=== PATIENT | male | born 1990 | race Caucasian/White ===

== ENCOUNTER 2017-02-10 21:46 | Emergency (ER) | payer OTHER ==
[~2017-02-10] VITALS: Ht 172.7 cm; Wt 110.0 kg
[~2017-02-10 21:46] MED LIST: DEPA500T3 PO; DIVA500T3 PO; SERO100T PO; TRAZ150T75 PO; ZIPR1CAP27 PO
[2017-02-10 21:55] VITALS: BP 140/79; PULSE 84; RESP 18; TEMP 98; O2SAT 98
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
[2017-02-10] MEDS ORDERED: LIDOCAINE HCL 1% 30 ML VIAL INFIL ONE (22:00)
[2017-02-10] MEDS ORDERED: ceFAZolin 2 GM PREMIX 50 ML ONE (22:02)
[2017-02-10] MEDS ORDERED: LIDOCAINE 1%/EPINEPHrine 1:100,000 SOLN 50 ML VIAL ONE (22:03)
[2017-02-10] MEDS ORDERED: LIDOCAINE HCL 1% PF 30 ML VIAL ONE (22:04)
[2017-02-10] MEDS ORDERED: ceFAZolin 2 GM PREMIX 50 ML IV ONE (22:15)
== END 2017-02-11 00:17 | disposition home or self-care (01) ==
LOC: NEPE 21:46
DX: S51.812A Laceration without foreign body of left forearm, initial encounter (principal); Z72.0 Tobacco use; Z23 Encounter for immunization; Z86.79 Personal history of other diseases of the circulatory system; Z86.59 Personal history of other mental and behavioral disorders; W27.8XXA Contact with other nonpowered hand tool, initial encounter
CPT/HCPCS: 12032; 90471; 90715; 96365; 96366; 96374; 99284; 99285; J0690; J1170

== ENCOUNTER 2017-07-01 10:43 | Emergency (ER) | payer OTHER ==
[~2017-07-01 10:43] MED LIST changes: -DEPA500T3 PO; -TRAZ150T75 PO; -ZIPR1CAP27 PO
[2017-07-01 10:44] VITALS: BP 146/86; PULSE 92; RESP 15; TEMP 98.4; O2SAT 98
[2017-07-01 12:08] LABS: AUTOMATED NEUTROPHIL # 2.1 TH/MM3 (1.8-7.7); BASOPHIL % 0.3 % (0.0-2.0); EOSINOPHIL # 0.1 TH/MM3 (0-0.4); EOSINOPHIL % 0.9 % (0.0-4.0); HEMATOCRIT 43.1 % (39.0-51.0); LYMPH % 59.8 % (9.0-44.0); LYMPHOCYTE # 4.4 TH/MM3 (1.0-4.8); MEAN CELL VOLUME 84.6 FL (80.0-100.0); MEAN CORPUSCULAR HGB CONC 34.3 % (32.0-36.0); MONO % 10.5 % (0.0-8.0); NEUT % 28.5 % (16.0-70.0); PLATELET COUNT 181 TH/MM3 (150-450); RED BLOOD COUNT 5.09 MIL/MM3 (4.50-5.90); RED CELL DISTRIBUTION WIDTH 13.2 % (11.6-17.2); WHITE BLOOD COUNT 7.3 TH/MM3 (4.0-11.0)
[2017-07-01 12:10] LABS: HEMO FLAGS AUTO DIFF
[2017-07-01 12:14] LABS: BLOOD, URINE NEG (NEG); COMMENT (UR) CULT NOT INDICATED; CULTURE IF INDICATED CULT NOT INDICATED; GLUCOSE,URINE NEG (NEG); KETONE, URINE NEG (NEG); MUCUS URINE FEW /lpf (OCC); NITRITE,URINE NEG (NEG); PH, URINE 5.5 (5.0-8.5); URINE COLOR YELLOW (YELLW/STRAW)
[2017-07-01 12:21] LABS: ANION GAP 10 MEQ/L (5-15); AST (GOT) 25 U/L (15-37); BLOOD UREA NITROGEN 11 MG/DL (7-18); CHLORIDE 107 MEQ/L (98-107); GLOMERULAR FILTRATION RATE 103 ML/MIN (>89); POTASSIUM 4.2 MEQ/L (3.5-5.1); SODIUM (NA) 138 MEQ/L (136-145)
[2017-07-01 12:23] LABS: ALT (GPT) 60 U/L (12-78)
[2017-07-01 12:24] LABS: ALKALINE PHOSPHATASE 104 U/L (45-117); TOTAL BILIRUBIN ADULT 0.5 MG/DL (0.2-1.0)
[2017-07-01 12:41] LABS: SCAN/DIFF AUTO DIFF CONFIRMED
--- NOTE | 2017-07-01 13:32 | PD ---
HPI Chief Complaint: GI Complaint Time Seen by Provider: 13:10 Travel History International Travel<30 days: No Contact w/Intl Traveler<30days: No Traveled to known affect area: No History of Present Illness HPI This patient reports that he has had nausea and vomiting and diarrhea for one month. He says he vomits about twice a day. He hasn't seen his family physician for this. He's been told by multiple people he is a GI evaluation. He is not having fever or abdominal pain. Severity is mild to moderate. No alleviating factors. Denies alcohol abuse or drug abuse other than rare marijuana use. No exacerbating factors PFSH Past Medical History Blood Disorders: No Anxiety: Yes Depression: No Heart Rhythm Problems: No Cancer: No Cardiovascular Problems: Yes (cardiac arrythmia) High Cholesterol: No Endocrine: No Gastrointestinal Disorders: No Genitourinary: No Implanted Vascular Access Dvce: No Musculoskeletal: No Neurologic: Yes (bi polar connie) Psychiatric: Yes Respiratory: No Immunizations Current: Yes Past Surgical History Other Surgery: No Social History Alcohol Use: Yes (OCC) Tobacco Use: Yes (ONCE EVERY FEW DAYS) Substance Use: Yes (marijuana) Allergies-Medications (Allergen,Severity, Reaction): Coded Allergies: diphenhydramine (Unverified Allergy, Unknown, ITCHY, 05/01/17) trazodone (Unverified Allergy, Unknown, 05/01/17) Reported Meds & Prescriptions Reported Meds & Active Scripts Active Reported Seroquel (Quetiapine Fumarate) 100 Mg Tab 100 Mg PO DAILY Divalproex ER (Divalproex Sodium) 500 Mg Tab 500 Mg PO DAILY Review of Systems General / Constitutional: No: Fever Eyes: No: Visual changes HENT: No: Headaches Cardiovascular: No: Chest Pain or Discomfort Respiratory: No: Shortness of Breath Gastrointestinal: Positive: Nausea, Vomiting, Diarrhea, No: Abdominal Pain Genitourinary: No: Dysuria Musculoskeletal: No: Pain Skin: No Rash Neurologic: No: Weakness Psychiatric: No: Depression Endocrine: No: Polydipsia Hematologic/Lymphatic: No: Easy Bruising Physical Exam Narrative GENERAL: Well-nourished, well-developed patient in no apparent distress. SKIN: Focused skin assessment reveals no rash and nodules. Skin is Warm and dry. HEAD: Atraumatic. Normocephalic. EYES: Pupils equal and round. No scleral icterus. No injection or drainage. ENT: No nasal bleeding or discharge. Mucous membranes pink and moist. NECK: Trachea midline. No JVD. CARDIOVASCULAR: Regular rate and rhythm. No murmur appreciated. RESPIRATORY: No accessory muscle use. Clear to auscultation. Breath sounds equal bilaterally. GASTROINTESTINAL: Abdomen soft, non-tender, nondistended. Hepatic and splenic margins not palpable. MUSCULOSKELETAL: No obvious deformities. No clubbing. No cyanosis. No edema. NEUROLOGICAL: Awake and alert. No obvious cranial nerve deficits. Motor grossly within normal limits. Normal speech. PSYCHIATRIC: Appropriate mood and affect; insight and judgment normal. Data Data Last Documented VS Vital Signs Date Time Temp Pulse Resp B/P (MAP) Pulse Ox O2 Delivery O2 Flow Rate FiO2 07/01/17 10:44 98.4 92 15 146/86 (106) 98 Orders Orders Complete Blood Count With Diff (07/01/17 11:14) Comprehensive Metabolic Panel (07/01/17 11:14) Urinalysis - C+S If Indicated (07/01/17 11:14) Lipase (07/01/17 11:14) Labs Laboratory Tests Test 07/01/17 11:41 07/01/17 11:43 White Blood Count 7.3 TH/MM3 Red Blood Count 5.09 MIL/MM3 Hemoglobin 14.8 GM/DL Hematocrit 43.1 % Mean Corpuscular Volume 84.6 FL Mean Corpuscular Hemoglobin 29.0 PG Mean Corpuscular Hemoglobin Concent 34.3 % Red Cell Distribution Width 13.2 % Platelet Count 181 TH/MM3 Mean Platelet Volume 8.5 FL Neutrophils (%) (Auto) 28.5 % Lymphocytes (%) (Auto) 59.8 % Monocytes (%) (Auto) 10.5 % Eosinophils (%) (Auto) 0.9 % Basophils (%) (Auto) 0.3 % Neutrophils # (Auto) 2.1 TH/MM3 Lymphocytes # (Auto) 4.4 TH/MM3 Monocytes # (Auto) 0.8 TH/MM3 Eosinophils # (Auto) 0.1 TH/MM3 Basophils # (Auto) 0.0 TH/MM3 CBC Comment AUTO DIFF Differential Comment AUTO DIFF CONFIRMED Blood Urea Nitrogen 11 MG/DL Creatinine 0.89 MG/DL Random Glucose 94 MG/DL Total Protein 7.8 GM/DL Albumin 4.0 GM/DL Calcium Level 9.1 MG/DL Alkaline Phosphatase 104 U/L Aspartate Amino Transf (AST/SGOT) 25 U/L Alanine Aminotransferase (ALT/SGPT) 60 U/L Total Bilirubin 0.5 MG/DL Sodium Level 138 MEQ/L Potassium Level 4.2 MEQ/L Chloride Level 107 MEQ/L Carbon Dioxide Level 21.0 MEQ/L Anion Gap 10 MEQ/L Estimat Glomerular Filtration Rate 103 ML/MIN Lipase 71 U/L Urine Color YELLOW Urine Turbidity CLEAR Urine pH 5.5 Urine Specific [place] 1.020 Urine Protein NEG mg/dL Urine Glucose (UA) NEG mg/dL Urine Ketones NEG mg/dL Urine Occult Blood NEG Urine Nitrite NEG Urine Bilirubin NEG Urine Urobilinogen LESS THAN 2.0 MG/DL Urine Leukocyte Esterase NEG Urine WBC LESS THAN 1 /hpf Urine Mucus FEW /lpf Microscopic Urinalysis Comment CULT NOT INDICATED MDM Medical Decision Making Medical Screen Exam Complete: Yes Emergency Medical Condition: Yes Medical Record Reviewed: Yes Differential Diagnosis Inflammatory bowel disease, irritable bowel syndrome, colitis Narrative Course I have reviewed the patient's electronic medical record. CBC is normal Metabolic profile is normal LFTs are normal Patient's vital signs exam and lab studies are all normal. Symptoms are chronic in nature. I'm recommending outpatient GI follow-up. He says he is a [facility] patient so he should arrange GI follow up with them Diagnosis Primary Impression: Vomiting and diarrhea Additional Instructions: The patient was advised to follow up with GI physician and return if they worsen. Med/Other Pt SpecificInfo: Other Disposition: 01 DISCHARGE HOME Condition: Stable Glenn Herman MD Jul 01, 2017 13:32
== END 2017-07-01 14:23 | disposition home or self-care (01) ==
LOC: NEPD 10:43
DX: R11.2 Nausea with vomiting, unspecified (principal); R19.7 Diarrhea, unspecified
CPT/HCPCS: 80053; 81001; 83690; 85025; 99283

== ENCOUNTER 2017-08-05 20:05 | Emergency (ER) | payer OTHER ==
[~2017-08-05] VITALS: Ht 172.7 cm; Wt 110.0 kg
[2017-08-05 20:06] VITALS: BP 137/79; PULSE 97; RESP 16; TEMP 98.3; O2SAT 95
[2017-08-05 20:21] VITALS: BP 119/74; PULSE 86; RESP 20; TEMP 98.3; O2SAT 96
[2017-08-05 20:25] VITALS: O2SAT 96
[2017-08-05] MEDS: RESP: ALBUTEROL 2.5 MG/IPRATROPIUM 0.5 MG NEB (SCH) INH (20:26)
[2017-08-05] MEDS ORDERED: DEXAMETHASONE SOD PHOS 4 MG/ML VIAL IM ONE (20:30)
--- NOTE | 2017-08-05 20:45 | PD ---
HPI Chief Complaint: Cold / Flu Symptoms Time Seen by Provider: 20:15 Travel History International Travel<30 days: No Contact w/Intl Traveler<30days: No Traveled to known affect area: No History of Present Illness HPI 27-year-old male presents to the emergency department for evaluation of cold symptoms for 3 days. Patient reports intermittent wheezing, chest tightness, cough. He states he has had chills, but no documented fevers. No abdominal pain. He does state he has coughs so hard he has vomited 3. He denies any other complaints at this time. Severity is [id number]. No exacerbating or alleviating factors. PFSH Past Medical History Blood Disorders: No Anxiety: Yes Depression: No Heart Rhythm Problems: No Cancer: No Cardiovascular Problems: Yes (cardiac arrythmia) High Cholesterol: No Diminished Hearing: No Endocrine: No Gastrointestinal Disorders: No Genitourinary: No Implanted Vascular Access Dvce: No Musculoskeletal: No Neurologic: Yes (bi polar connie) Psychiatric: Yes Respiratory: No Immunizations Current: Yes Past Surgical History Other Surgery: No Social History Alcohol Use: Yes (OCC) Tobacco Use: Yes (ONCE EVERY FEW DAYS) Substance Use: Yes (marijuana) Allergies-Medications (Allergen,Severity, Reaction): Coded Allergies: diphenhydramine (Unverified Allergy, Unknown, ITCHY, 08/05/17) trazodone (Unverified Allergy, Unknown, 08/05/17) Reported Meds & Prescriptions Reported Meds & Active Scripts Active Review of Systems Except as stated in HPI: all other systems reviewed are Neg Physical Exam Narrative GENERAL: Well-nourished, well-developed male patient, ambulatory. Afebrile. SKIN: Focused skin assessment warm/dry. HEAD: Normocephalic. Atraumatic. ENT: Mucosa pink and moist. No erythema or exudates. No uvular edema. No uvular , palatal, or tonsillar deviation. Airway patent. Nasal turbinates appear normal without nasal blood, purulent drainage or septal hematoma. Bilateral tympanic membranes are clear without erythema or perforation. EYES: No scleral icterus. No injection or drainage. NECK: Supple, trachea midline. No JVD or lymphadenopathy. CARDIOVASCULAR: Regular rate and rhythm without murmurs, gallops, or rubs. RESPIRATORY: Breath sounds equal bilaterally. No accessory muscle use. Lungs sounds with expiratory wheezes noted throughout. GASTROINTESTINAL: Abdomen soft, non-tender, nondistended. MUSCULOSKELETAL: No cyanosis, or edema. BACK: Nontender without obvious deformity. No CVA tenderness. Data Data Last Documented VS Vital Signs Date Time Temp Pulse Resp B/P (MAP) Pulse Ox O2 Delivery O2 Flow Rate FiO2 08/05/17 20:25 96 21 08/05/17 20:21 98.3 86 20 119/74 (89) Room Air Orders Orders Chest, Single Ap (08/05/17 20:20) Albuterol-Ipratropium Neb (Duoneb Neb) (08/05/17 20:30) Dexamethasone Inj (Decadron Inj) (08/05/17 20:30) MDM Medical Decision Making Medical Screen Exam Complete: Yes Emergency Medical Condition: Yes Medical Record Reviewed: Yes Interpretation(s) Last Impressions Chest X-Ray 08/05/172019 Signed Impressions: Service Date/Time: Saturday, August 05, 2017 20:27 - CONCLUSION: No acute cardiopulmonary disease identified. Enrique Garcia MD Differential Diagnosis URI versus bronchitis versus pneumonia Narrative Course 27-year-old male presents to the emergency department for evaluation of cold symptoms. He does have some expiratory wheezes on exam. Patient is given dexamethasone 8 mg IM. Chest x-ray is ordered and pending. He is given DuoNeb 2. Chest x-ray shows no acute cardiopulmonary disease. Patient will be discharged prescription for prednisone, benzonatate capsules, albuterol inhaler. He is encouraged to follow-up with his primary care physician. The patient was discharged in stable condition with instructions, including return instructions and follow up instructions. Diagnosis Primary Impression: Upper respiratory infection Qualified Codes: J06.9 - Acute upper respiratory infection, unspecified Referrals: Primary Care Physician call for appointment Patient Instructions: General Instructions, Upper Respiratory Infection (ED) Departure Forms: Tests/Procedures, Work Release Enter return to work date: Aug 07, 2017 Additional Instructions: Use albuterol inhaler as directed as needed for shortness breath/wheezing. Take prednisone as directed. Start this tomorrow. Take benzonatate capsules as directed as needed for cough. Follow-up with your primary care physician. Return to the emergency department for any acute worsening of symptoms. Med/Other Pt SpecificInfo: Prescription(s) given Scripts Benzonatate (Benzonatate) 200 Mg Cap 200 MG PO TID Y for COUGH, #21 CAP 0 Refills Prov: Suzanna Gamez 08/05/17 Prednisone (Prednisone) 20 Mg Tab 40 MG PO DAILY for 5 Days, #10 TAB 0 Refills Take 40 mg (2 tablets) daily for 5 days Prov: Suzanna Gamez 08/05/17 Albuterol 18 GM Inh (Ventolin Hfa 18 GM Inh) 90 Mcg/Act Aer 1 PUFF INH Q4H Y for SHORTNESS OF BREATH, #1 INHALER 0 Refills Prov: Suzanna Gamez 08/05/17 Disposition: 01 DISCHARGE HOME Condition: Stable Suzanna Gamez Aug 05, 2017 20:45
--- NOTE | 2017-08-05 20:53 | RADRPT ---
EXAM DATE/TIME: 08/05/2017 20:27 [facility] COMPARISON: CHEST SINGLE AP, December 11, 2014, 22:04. INDICATIONS : Shortness of breath, cough, and bilateral chest pain. MEDICAL HISTORY : Stroke. SURGICAL HISTORY : None. ENCOUNTER: Initial ACUITY: 2 days PAIN SCORE: 5/10 LOCATION: Bilateral chest FINDINGS: Single AP view of the chest. The lungs are clear. Cardiomediastinal silhouette within normal limits. No evidence of pleural effusion or pneumothorax. CONCLUSION: No acute cardiopulmonary disease identified. Enrique Garcia MD on August 05, 2017 at 20:51 Board Certified Radiologist. This report was verified electronically.
[2017-08-05] MEDS ORDERED: PRED20 PO (21:02)
[2017-08-05] MEDS ORDERED: BENZ1CAP51 PO (21:02)
[2017-08-05] MEDS ORDERED: VENTAER INH (21:02)
== END 2017-08-05 21:29 | disposition home or self-care (01) ==
LOC: NEPD 20:05
DX: J06.9 Acute upper respiratory infection, unspecified (principal); F41.9 Anxiety disorder, unspecified; F31.9 Bipolar disorder, unspecified; Z72.0 Tobacco use
CPT/HCPCS: 71010; 94640; 94664; 96372; 99284; J1100

== ENCOUNTER 2017-08-07 22:01 | Emergency (ER) | payer OTHER ==
[~2017-08-07] VITALS: Ht 172.7 cm; Wt 110.0 kg
[~2017-08-07 22:01] MED LIST changes: +BENZ1CAP51 PO; -DIVA500T3 PO; +PRED20 PO; -SERO100T PO; +VENTAER INH
[2017-08-07 22:03] VITALS: BP 142/85; PULSE 88; RESP 18; TEMP 98.4; O2SAT 100
[2017-08-07] MEDS ORDERED: SODIUM CHLORIDE 0.9% FLUSH 10 ML FLUSH IV FLUSH PRN (22:45)
--- NOTE | 2017-08-07 22:45 | PD ---
HPI Chief Complaint: Abdominal Pain Time Seen by Provider: 22:41 Travel History International Travel<30 days: No Contact w/Intl Traveler<30days: No Traveled to known affect area: No History of Present Illness HPI seen earlier this week and treated for wheezing and cough, about 5 days ago, treatment was improving but then patient decided to work out and now has n/v/ and body aches as well as epig pain. burning sensation, 6/10, worse right before meals and sometimes shortly after eating...improves with vomiting....patient denies aggravating factors...states that his pcp has not given referral to gi for further evaluation. PFSH Past Medical History Blood Disorders: No Bipolar Disorder: Yes Anxiety: Yes Depression: No Heart Rhythm Problems: No Cancer: No Cardiovascular Problems: Yes (cardiac arrythmia) High Cholesterol: No Diminished Hearing: No Endocrine: No Gastrointestinal Disorders: No Genitourinary: No Implanted Vascular Access Dvce: No Musculoskeletal: No Neurologic: Yes (bi polar connie) Psychiatric: Yes Respiratory: No Immunizations Current: Yes Tetanus Vaccination: < 5 Years Past Surgical History Surgical History: No Previous Surgery Other Surgery: No Social History Alcohol Use: No Tobacco Use: Yes (ONCE EVERY FEW DAYS) Substance Use: Yes (marijuana) Allergies-Medications (Allergen,Severity, Reaction): Coded Allergies: hydroxyzine (Verified Allergy, Severe, 08/07/17) pt states "I will wig out and they will send me back to [facility]" lithium (Verified Allergy, Severe, 08/07/17) "the most sever pain ever!" diphenhydramine (Unverified Allergy, Unknown, ITCHY, 08/07/17) trazodone (Unverified Allergy, Unknown, 08/07/17) Reported Meds & Prescriptions Reported Meds & Active Scripts Active Carafate (Sucralfate) 1 Gram Tab 1 Gm PO TID On empty stomach Benzonatate 200 Mg Cap 200 Mg PO TID PRN Prednisone 20 Mg Tab 40 Mg PO DAILY 5 Days Take 40 mg (2 tablets) daily for 5 days Ventolin Hfa 18 GM Inh (Albuterol Sulfate) 90 Mcg/Act Aer 1 Puff INH Q4H PRN Review of Systems Except as stated in HPI: all other systems reviewed are Neg General / Constitutional: No: Fever Eyes: No: Visual changes HENT: No: Headaches Cardiovascular: No: Chest Pain or Discomfort Respiratory: Positive: Cough Gastrointestinal: Positive: Nausea, Vomiting, Abdominal Pain Genitourinary: No: Dysuria Musculoskeletal: No: Pain Skin: No Rash Neurologic: No: Weakness Psychiatric: No: Depression Endocrine: No: Polydipsia Hematologic/Lymphatic: No: Easy Bruising Physical Exam Narrative GENERAL: SKIN: Warm and dry. HEAD: Atraumatic. Normocephalic. EYES: Pupils equal and round. No scleral icterus. No injection or drainage. ENT: No nasal bleeding or discharge. Mucous membranes pink and moist. NECK: Trachea midline. No JVD. CARDIOVASCULAR: Regular rate and rhythm. RESPIRATORY: No accessory muscle use. Clear to auscultation. Breath sounds equal bilaterally. GASTROINTESTINAL: Abdomen soft, non-tender, nondistended. MUSCULOSKELETAL: Extremities without clubbing, cyanosis, or edema. No obvious deformities. NEUROLOGICAL: Awake and alert. No obvious cranial nerve deficits. Motor grossly within normal limits. Five out of 5 muscle strength in the arms and legs. Normal speech. PSYCHIATRIC: Appropriate mood and affect; insight and judgment normal. Data Data Last Documented VS Vital Signs Date Time Temp Pulse Resp B/P (MAP) Pulse Ox O2 Delivery O2 Flow Rate FiO2 08/07/17 23:05 20 98 Room Air 08/07/17 22:03 98.4 88 Orders Orders Complete Blood Count With Diff (08/07/17 22:42) Comprehensive Metabolic Panel (08/07/17 22:42) Lipase (08/07/17 22:42) Ct Abd/Pel W/O Iv Contrast (08/07/17 22:42) Iv Access Insert/Monitor (08/07/17 22:42) Ecg Monitoring (08/07/17 22:42) Oximetry (08/07/17 22:42) NPO (08/07/17 22:42) Sodium Chloride 0.9% Flush (Ns Flush) (08/07/17 22:45) Ed Discharge Order (08/07/17 23:55) Ondansetron Inj (Zofran Inj) (08/08/17 00:15) Ketorolac Inj (Toradol Inj) (08/08/17 00:15) Al-Mag Hy-Si 40-40-4 Mg/Ml Liq (Mag-Al P (08/08/17 00:15) Lidocaine 2% Viscous (Xylocaine 2% Visco (08/08/17 00:15) Labs Laboratory Tests Test 08/07/17 23:05 White Blood Count 13.2 TH/MM3 Red Blood Count 5.00 MIL/MM3 Hemoglobin 14.3 GM/DL Hematocrit 42.3 % Mean Corpuscular Volume 84.5 FL Mean Corpuscular Hemoglobin 28.6 PG Mean Corpuscular Hemoglobin Concent 33.8 % Red Cell Distribution Width 14.0 % Platelet Count 281 TH/MM3 Mean Platelet Volume 8.7 FL Neutrophils (%) (Auto) 64.5 % Lymphocytes (%) (Auto) 28.4 % Monocytes (%) (Auto) 6.6 % Eosinophils (%) (Auto) 0.1 % Basophils (%) (Auto) 0.4 % Neutrophils # (Auto) 8.5 TH/MM3 Lymphocytes # (Auto) 3.8 TH/MM3 Monocytes # (Auto) 0.9 TH/MM3 Eosinophils # (Auto) 0.0 TH/MM3 Basophils # (Auto) 0.0 TH/MM3 CBC Comment DIFF FINAL Differential Comment Blood Urea Nitrogen 17 MG/DL Creatinine 1.32 MG/DL Random Glucose 93 MG/DL Total Protein 8.3 GM/DL Albumin 4.3 GM/DL Calcium Level 9.9 MG/DL Alkaline Phosphatase 92 U/L Aspartate Amino Transf (AST/SGOT) 34 U/L Alanine Aminotransferase (ALT/SGPT) 88 U/L Total Bilirubin 0.5 MG/DL Sodium Level 138 MEQ/L Potassium Level 3.6 MEQ/L Chloride Level 106 MEQ/L Carbon Dioxide Level 21.9 MEQ/L Anion Gap 10 MEQ/L Estimat Glomerular Filtration Rate 66 ML/MIN Lipase 69 U/L [facility] Medical Decision Making Medical Screen Exam Complete: Yes Emergency Medical Condition: Yes Medical Record Reviewed: Yes Differential Diagnosis biliary colic v dyspepsia v pancreatitis Narrative Course no e/o cholecystitis, pancreatitis or perforated ulcer...also no colitis, diverticular dz either Diagnosis Primary Impression: Dyspepsia Referrals: Khris Menchaca MD for further evaluation of your ongoing abdominal pain Scripts Sucralfate (Carafate) 1 Gram Tab 1 GM PO TID for Ulcer Prevention, #30 TAB 0 Refills On empty stomach Prov: Celio Falcon MD 08/07/17 Disposition: 01 DISCHARGE HOME Condition: Stable Celio Falcon MD Aug 07, 2017 22:45
[2017-08-07 23:05] VITALS: RESP 20; O2SAT 98
[2017-08-07 23:15] LABS: AUTOMATED NEUTROPHIL # 8.5 TH/MM3 (1.8-7.7); BASOPHIL % 0.4 % (0.0-2.0); EOSINOPHIL % 0.1 % (0.0-4.0); HEMATOCRIT 42.3 % (39.0-51.0); HEMO FLAGS DIFF FINAL; LYMPH % 28.4 % (9.0-44.0); LYMPHOCYTE # 3.8 TH/MM3 (1.0-4.8); MEAN CELL VOLUME 84.5 FL (80.0-100.0); MEAN CORPUSCULAR HEMOGLOBIN 28.6 PG (27.0-34.0); MEAN CORPUSCULAR HGB CONC 33.8 % (32.0-36.0); MONO % 6.6 % (0.0-8.0); NEUT % 64.5 % (16.0-70.0); PLATELET COUNT 281 TH/MM3 (150-450); WHITE BLOOD COUNT 13.2 TH/MM3 (4.0-11.0)
--- NOTE | 2017-08-07 23:27 | RADRPT ---
EXAM DATE/TIME: 08/07/2017 23:07 [facility] COMPARISON: No previous studies available for comparison. INDICATIONS : Epigastric abdominal pain with nausea and vomiting. ORAL CONTRAST: No oral contrast ingested. RADIATION DOSE: 16.51 CTDIvol (mGy) MEDICAL HISTORY : None SURGICAL HISTORY : None. ENCOUNTER: Initial ACUITY: 2 days PAIN SCALE: 6/10 LOCATION: Epigastric. TECHNIQUE: Volumetric scanning of the abdomen and pelvis was performed. Using automated exposure control and ad justment of the mA and/or kV according to patient size, radiation dose was kept as low as reasonably achievable to obtain optimal diagnostic quality images. DICOM format image data is available electro nically for review and comparison. FINDINGS: LOWER LUNGS: The visualized lower lungs are clear. LIVER: Homogeneous density without lesion. There is no dilation of the biliary tree. No calcified [place] es. SPLEEN: Normal size without lesion. PANCREAS: Within normal limits. KIDNEYS: Normal in size and shape. There is no mass, stone, or hydronephrosis. ADRENAL GLANDS: Within normal limits. VASCULAR: There is no aortic aneurysm. BOWEL/MESENTERY: The stomach, small bowel, and colon demonstrate no acute abnormality. There is no free intraperitone al air or fluid. ABDOMINAL WALL: Within normal limits. RETROPERITONEUM: There is no lymphadenopathy. BLADDER: No wall thickening or mass. REPRODUCTIVE: Within normal limits. INGUINAL: There is no lymphadenopathy or hernia. MUSCULOSKELETAL: Within normal limits for patient age. CONCLUSION: Normal noncontrast CT of the abdomen and pelvis. Trey Lynn MD on August 07, 2017 at 23:24 Board Certified Radiologist. This report was verified electronically.
[2017-08-07 23:30] LABS: ANION GAP 10 MEQ/L (5-15); AST (GOT) 34 U/L (15-37); BICARBONATE 21.9 MEQ/L (21.0-32.0); BLOOD UREA NITROGEN 17 MG/DL (7-18); CHLORIDE 106 MEQ/L (98-107); GLOMERULAR FILTRATION RATE 66 ML/MIN (>89); POTASSIUM 3.6 MEQ/L (3.5-5.1); SODIUM (NA) 138 MEQ/L (136-145)
[2017-08-07 23:31] LABS: ALT (GPT) 88 U/L (12-78)
[2017-08-07 23:34] LABS: ALKALINE PHOSPHATASE 92 U/L (45-117); TOTAL BILIRUBIN ADULT 0.5 MG/DL (0.2-1.0)
[2017-08-07] MEDS ORDERED: CARA1TAB6 PO (23:54)
[2017-08-08] MEDS ORDERED: LIDOCAINE VISCOUS 2% SOLN 15 ML UDC PO ONE (00:15)
[2017-08-08] MEDS ORDERED: KETOROLAC TROMETHAMINE 30 MG/ML (IVP) VIAL IV PUSH ONE (00:15)
[2017-08-08] MEDS ORDERED: ONDANSETRON HCL 4 MG/2 ML VIAL IV PUSH ONE (00:15)
[2017-08-08] MEDS ORDERED: ALUMINUM/MAGNESIUM/SIMETH 30 ML CUP PO ONE (00:15)
== END 2017-08-08 00:38 | disposition home or self-care (01) ==
LOC: NEPD 22:01
DX: R10.13 Epigastric pain (principal); R11.2 Nausea with vomiting, unspecified; R05 Cough; F31.9 Bipolar disorder, unspecified; F41.9 Anxiety disorder, unspecified; Z79.899 Other long term (current) drug therapy; Z72.0 Tobacco use
CPT/HCPCS: 74176; 80053; 83690; 85025; 96374; 96375; 99285; J1885; J2405